=== PATIENT | female | born 1980 ===

== ENCOUNTER 2016-04-30 06:37 | Inpatient (IN) | payer BC ==
[2016-04-30 07:36] LABS: Hematocrit 38 % (35-47); Hemoglobin 12.8 g/dl (12.0-16.0); Mean Corpuscular HGB Conc 33 g/dl (31-36); Mean Corpuscular Hemoglobin 26 pg (27-31); Mean Corpuscular Volume 79 fL (80-97); Mean Platelet Volume 9 um3 (7.4-10.4); Red Blood Count 4.85 10^6/ul (4.0-5.4); Red Cell Distribution Width 20 % (10.5-15); White Blood Count 10.9 10^3/ul (3.5-10.8)
[2016-04-30] MEDS ORDERED: Sodium Citrate/Citric Acid* 15 ML UDC PO ONE (07:58)
[2016-04-30] MEDS ORDERED: ceFOXitin 2 GM IVPREMIX* 2 GM/50 ML BAG IVPB ONE (07:58)
[2016-04-30] MEDS ORDERED: Sodium Citrate/Citric Acid* 15 ML UDC ONE (08:11)
[2016-04-30] MEDS ORDERED: ceFOXitin 2 GM IVPREMIX* 2 GM/50 ML BAG ONE (08:12)
[2016-04-30] MEDS ORDERED: Morphine PF AMP (0.5MG/ML)* 5 MG/10 ML AMP ONE (08:14)
[2016-04-30] MEDS ORDERED: Ondansetron INJ* 2 MG/ML VIAL ONE (08:15)
[2016-04-30] MEDS ORDERED: Dexamethasone IV* 4 MG/ML 1 ML (4 MG) ONE (08:15)
[2016-04-30] MEDS ORDERED: Famotidine IV* 10 MG/ML 2 ML (20 mg) ONE (08:15)
[2016-04-30] MEDS ORDERED: OXYTOCIN* 10 UNITS/ML 1 ML VIAL ONE (08:15)
[2016-04-30] MEDS ORDERED: Phenylephrine IV* 40 MCG/ML 10 ML SYRINGE ONE (09:34)
[2016-04-30] MEDS ORDERED: fentaNYL* 50 MCG/ML 2 ML VIAL (100 MCG VIAL) IV PRN (09:37)
[2016-04-30] MEDS ORDERED: Naloxone* 0.4 MG/ML 1 ML VIAL IV PRN (09:37)
[2016-04-30] MEDS ORDERED: oxyCODONE/Acetamin 5/325 MG* TAB PO PRN ×2 (09:37)
[2016-04-30] MEDS ORDERED: Ondansetron INJ* 2 MG/ML VIAL IV PRN (09:37)
[2016-04-30] MEDS ORDERED: Nalbuphine* 20 MG/ML 1 ML VIAL IV PRN ×2 (09:37)
[2016-04-30] MEDS ORDERED: Zolpidem TAB* 5 MG PO PRN (10:02)
[2016-04-30] MEDS ORDERED: Witch Hazel PAD* JAR TOPICAL PRN (10:02)
[2016-04-30] MEDS ORDERED: Dibucaine 1% 28.35 GM TUBE PR PRN (10:02)
[2016-04-30] MEDS ORDERED: Acetaminophen TAB* 325 MG PO PRN (10:02)
[2016-04-30] MEDS ORDERED: Glycerin ADULT SUPP PR PRN (10:02)
[2016-04-30] MEDS ORDERED: Oxytocin in LR* 20 UNITS/1,000 ML BAG IVPB ONE (10:14)
[2016-04-30] MEDS ORDERED: Oxytocin in LR* 20 UNITS/1,000 ML BAG IVPB SCH (11:00)
[2016-04-30] MEDS: Ketorolac INJ* 30 MG/ML 1 ML VIAL IV PRN ×2 (12:28→18:30)
[2016-04-30] MEDS: Simethicone TAB* 80 MG TAB.CHEW PO SCH ×3 (12:36→20:07)
[2016-04-30] MEDS: Ibuprofen TAB* 600 MG PO SCH ×3 (12:36→20:07)
[2016-04-30] MEDS: Docusate CAP* 100 MG PO SCH ×2 (13:53→20:07)
[2016-04-30] MEDS ORDERED: DiMENhydriNATE IV* 50 MG/ML VIAL IV PUSH PRN (18:52)
[2016-04-30] MEDS ORDERED: Scopolamine 1.5 mg* PATCH TRANSDERM ONE (19:00)
[2016-05-01] MEDS: Ketorolac INJ* 30 MG/ML 1 ML VIAL IV PRN (00:13)
[2016-05-01] MEDS ORDERED: oxyCODONE/Acetamin 5/325 MG* TAB PO PRN (00:59)
--- NOTE | 2016-05-01 02:25 | OP ---
OPERATIVE REPORT: [facility] DATE OF : 82 SURGEON: Gualberto Blackwell MD RECONSTRUCTIVE SURGEON: Lissa Wild CNM. ANESTHESIOLOGIST: Chandana Horvath MD. ANESTHESIA: Spinal. PRE-OP DIAGNOSIS: Previous section. POST-OP DIAGNOSES: Previous section, plus true knot in cord. OPERATIVE PROCEDURE: Low transverse section. ESTIMATED BLOOD LOSS: 600 cc. FINDINGS: Include a viable male, Apgars 9 and 9, weight 6 pounds 12 ounces. COMPLICATIONS: None. FINDINGS: This is a 36-year-old 2, para 1 with a previous section, who presented with spontaneous rupture of membranes at 05:30. She presented in early labor. She considered . I went through the risks, benefits, and alternatives and indication of vaginal after section as well as section. After discussion and exam, the patient's discussed and decided on repeat section. At the time of , she had a viable male, Apgars 9 and 9, weight 6 pounds 12 ounces. Normal-appearing fallopian tubes and ovaries. DESCRIPTION OF PROCEDURE: The patient identified and procedure identified as low transverse section. The patient was taken to the operating room and prepped and draped in the usual fashion in the left lateral recumbent position under spinal anesthesia. A Pfannenstiel incision was made through the old incision, carried down through fat, fascia, and peritoneum. A bladder flap was created via sharp and blunt dissection. Transverse incision was made in the lower uterine segment and extended laterally using a bandage scissors. The above was delivered through the incision with ease. The cord was doubly clamped and cut. The infant was handed to the awaiting physician assistant. Cord blood was obtained. Placenta delivered spontaneously. The uterus was wiped out with a wet lap sponge. The uterine incision was then closed using 0 Polysorb in a running fashion. A second layer was used to imbricate the first layer. Good hemostasis was verified in the subperitoneal space. The gutters were wiped out with a wet lap sponge and the peritoneum was closed using 3-0 Polysorb in a running fashion. Good hemostasis in the subrectus layers and the fascia was closed using 0 Polysorb in a running fashion. Good hemostasis was achieved in the subcu and it was undermined in order to provide decreased tension on the skin. Copious irrigation was utilized and suctioned out. The skin was closed with 4-0 Monocryl in a subcuticular fashion. All sponge and instrument counts were correct and the patient returned to the recovery room in stable condition. [id number]/[facility] #: [id number] [facility]
[2016-05-01 06:43] LABS: Hematocrit 32 % (35-47); Hemoglobin 10.6 g/dl (12.0-16.0); Mean Corpuscular HGB Conc 33 g/dl (31-36); Mean Corpuscular Hemoglobin 26 pg (27-31); Mean Corpuscular Volume 80 fL (80-97); Mean Platelet Volume 9 um3 (7.4-10.4); Red Blood Count 4.02 10^6/ul (4.0-5.4); Red Cell Distribution Width 20 % (10.5-15); White Blood Count 12.7 10^3/ul (3.5-10.8)
[2016-05-01] MEDS ORDERED: Ferrous Gluconate TAB* 324 MG TAB PO SCH (09:00)
[2016-05-01] MEDS: Ibuprofen TAB* 600 MG PO PRN ×2 (09:42→16:53)
[2016-05-01] MEDS: Simethicone TAB* 80 MG TAB.CHEW PO SCH ×4 (09:43→21:15)
[2016-05-01] MEDS: Docusate CAP* 100 MG PO SCH ×3 (09:43→21:15)
[2016-05-01] MEDS ORDERED: diPHENhydraMINE IV* 50 MG/ML 1 ml VIAL (BENADRYL) IV ONE (10:50)
[2016-05-01] MEDS: oxyCODONE/Acetamin 5/325 MG* TAB PO PRN (21:15)
[2016-05-02] MEDS: Ibuprofen TAB* 600 MG PO PRN ×3 (05:47→20:30)
[2016-05-02] MEDS: oxyCODONE/Acetamin 5/325 MG* TAB PO PRN ×2 (05:48→23:58)
[2016-05-02] MEDS: Docusate CAP* 100 MG PO SCH ×3 (08:21→20:30)
[2016-05-02] MEDS: Simethicone TAB* 80 MG TAB.CHEW PO SCH ×4 (08:21→20:30)
[2016-05-03] MEDS: Ibuprofen TAB* 600 MG PO PRN ×2 (04:53→11:59)
[2016-05-03] MEDS: Simethicone TAB* 80 MG TAB.CHEW PO SCH (07:54)
[2016-05-03] MEDS: Docusate CAP* 100 MG PO SCH (07:54)
[2016-05-03 08:06] VITALS: BP 130/73
[2016-05-03] MEDS ORDERED: Scopolamine PATCH Remove* 1 NOTE MISC PATCH OFF ONE (19:00)
== END 2016-05-03 13:22 | disposition home or self-care (01) | DRG 540 ==
LOC: MCHOBOUT 06:37 → MCHOB 06:55
PROVIDERS: ADMIT Obstetrics & Gynecology; ATTEND Obstetrics & Gynecology
PROC: 10D00Z1 Extraction of Products of Conception, Low, Open Approach (ICD-10-PCS; principal; 2016-04-30 08:54)
DX: O34.211 Maternal care for low transverse scar from previous cesarean delivery (principal); O42.02 Full-term premature rupture of membranes, onset of labor within 24 hours of rupture; O69.2XX0 Labor and delivery complicated by other cord entanglement, with compression, not applicable or unspecified; Z3A.38 38 weeks gestation of pregnancy; Z37.0 Single live birth
CPT/HCPCS: 36415; 85025; 85027; 86850; 86900; 86901; A9270-GY; J0694; J1100; J1200; J1240; J1885; J2300; J2405; J2590